=== PATIENT | female | born 1995 | race Caucasian/White ===

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

== ENCOUNTER → 2019-08-02 11:30 | Day surgery (SDC) | payer OTHER ==
[~2019-08-02 11:30] MED LIST: Acetaminophen TAB* 325 MG ONE; Acetaminophen TAB* 325 MG PO ONE; Buffered Lidocaine 1% SYRIN* 1 ML/SYRINGE INTRADERM ONE; Bupivacaine 0.5%* 50 ML MDV VIAL ONE; HYDROmorphone INJ1* 1 MG/ML SYRINGE IV PRN; HYDROmorphone INJ1* 1 MG/ML SYRINGE ONE; Lactated Ringers 1000 ML Bag* 1,000 ML IV SCH; Midazolam* 1 MG/ML 2 ML VIAL (2 MG) ONE; Naloxone* 0.4 MG/ML 1 ML VIAL IV PRN; Ondansetron INJ* 2 MG/ML VIAL ONE; PROCHLORPERAZINE INJ 5 MG/ML 2 ML VIAL IV PRN; PROCHLORPERAZINE INJ 5 MG/ML 2 ML VIAL ONE; Propofol* 10 MG/ML 20 ML BTL ONE; Rocuronium* 10 MG/ML VIAL ONE; ceFAZolin 2 GM in NS PREMIX(*) 2 GM/100 ML BAG IVPB ONE; diPHENhydraMINE IV* 50 MG/ML 1 ml VIAL (BENADRYL) IV PRN; fentaNYL* 50 MCG/ML 2 ML VIAL (100 MCG VIAL) ONE; oxyCODONE TAB* 5 MG TAB ONE; oxyCODONE TAB* 5 MG TAB PO PRN; oxyCODONE/Acetamin 5/325 MG* TAB ONE
[2019-08-02 18:54] VITALS: BP 134/81
--- NOTE | 2019-08-03 08:58 | OP ---
DATE OF OPERATION: 08/02/19 - [facility] DATE OF : 89 ATTENDING SURGEON: Yfn Horn MD [employer] SUPERINTENDENT: RABIA Wilkinson PRE-OP DIAGNOSIS: Cholecystitis. POST-OP DIAGNOSIS: Cholecystitis. OPERATIVE PROCEDURE: Robotic cholecystectomy. INDICATIONS FOR PROCEDURE: Cholecystitis. Risks included but not limited to bleeding; infection; injury to intraabdominal contents including the bowel, the bile duct, the liver all explained to the patient who seemed to understand and agreed to the procedure and all questions were answered. DESCRIPTION OF PROCEDURE: The patient was taken to the operating room, placed supine, and preoperative antibiotics were given. After the successful induction of general endotracheal anesthesia the abdomen was prepped and draped in a sterile fashion. Left upper quadrant trocar was placed under direct visualization of the camera using a bladeless Optiview trocar. Pneumoperitoneum was achieved at 12 mmHg. Camera was placed in the abdomen. The abdomen was scanned. There was no obvious injury from trocar placement. The infraumbilical and 2 right lower quadrant/right lateral quadrant robotic trocars were placed. The initial bladeless Optiview trocar was replaced with a robotic trocar. The patient was placed in the reverse Trendelenburg position tilted slightly towards the left. The fundus of the gallbladder was grasped and retracted up and over the liver. Few small adhesions were gently taken down off the gallbladder along an avascular plain. The duct was identified, isolated, clipped, and divided along with the artery separately. The gallbladder was removed from the hepatic bed using the Bovie cautery hook, it was placed into an Endobag and removed through the umbilical port site. The right upper quadrant was irrigated and aspirated dry. EBL minimal. Hemostasis was intact. Clips were in place. Pneumoperitoneum was released from the abdomen and the trocars were removed. Skin was closed with 3-0 Monocryl. Glue was applied to the skin. The patient tolerated the procedure well, was extubated, and taken to the recovery in stable condition. [id number]/[facility] #: [id number] MTDD
== END | disposition home or self-care (01) ==
LOC: OR 11:30
PROVIDERS: ATTEND Surgery
DX: K80.10 Calculus of gallbladder with chronic cholecystitis without obstruction (principal); K21.9 Gastro-esophageal reflux disease without esophagitis; E66.9 Obesity, unspecified
CPT/HCPCS: 47562; S2900; 81025; 88304; A9270-GY; J0690; J0780; J1170; J2250; J2405; J2704; J3010; J3490

== ENCOUNTER 2021-04-16 07:31 | Inpatient (IN) ==
[2021-04-16 09:43] LABS: Hematocrit 34 % (35-47); Hemoglobin 11.2 g/dL (12.0-16.0); Mean Corpuscular HGB Conc 33 g/dL (31-36); Mean Corpuscular Hemoglobin 24 pg (27-31); Mean Corpuscular Volume 74 fL (80-97); Platelet Count 272 10^3/uL (150-450); Red Blood Count 4.63 10^6 /uL (3.70-4.87); Red Cell Distribution Width 15 % (10-15); White Blood Count 10.3 10^3/uL (3.5-10.8)
[2021-04-16 10:09] LABS: Urine Benzodiazepine Screen None Detected (None Detect); Urine Cannabinoids Screen None Detected (None Detect); Urine Opiates Screen None Detected (None Detect)
[2021-04-16 10:22] LABS: Albumin 3.3 g/dL (3.2-5.2); Albumin/Globulin Ratio 1.2 (1-3); Calcium 8.9 mg/dL (8.6-10.3); Globulin 2.7 g/dL (2-4); Potassium 4.5 mmol/L (3.5-5.0); Total Bilirubin 0.5 mg/dL (0.2-1.0)
[2021-04-16] MEDS ORDERED: Buffered Lidocaine 1% SYRIN 1 ml INTRADERM ONE (12:17)
[2021-04-16] MEDS ORDERED: ceFOXitin 2 GM IVPREMIX 2 GM/50 ML BAG IVPB ONE (12:17)
[2021-04-16] MEDS ORDERED: Lactated Ringers 1000 ml BAG 1,000 ML IV ONE (12:17)
[2021-04-16] MEDS ORDERED: Sodium Citrate/Citric Acid LIQ 15 ML UDC ONE (12:17)
[2021-04-16] MEDS ORDERED: ceFOXitin 2 GM IVPREMIX 2 GM/50 ML BAG ONE (12:18)
[2021-04-16] MEDS ORDERED: Sodium Citrate/Citric Acid LIQ 15 ML UDC PO ONE (12:28)
[2021-04-16] MEDS ORDERED: Oxytocin 10 UNITS/ML 1 ML VIAL ONE (12:42)
[2021-04-16] MEDS ORDERED: Morphine PF AMP (0.5MG/ML) 5 MG/10 ML AMP ONE (12:42)
[2021-04-16] MEDS ORDERED: Bupivacaine 0.5% SDV PF 30ML VIAL ONE (12:42)
[2021-04-16] MEDS ORDERED: fentaNYL 100 mcg/2 ml 50 MCG/ML VIAL ONE (12:43)
[2021-04-16] MEDS ORDERED: Lactated Ringers 1000 ml BAG 1,000 ML IV SCH ×3 (13:00→15:00)
[2021-04-16] MEDS ORDERED: Dexamethasone IV 4 MG/ML VIAL 1 ml VIAL ONE (13:10)
[2021-04-16] MEDS ORDERED: Ondansetron 4 mg VIAL 2 MG/ML 2 ml VIAL ONE (13:10)
[2021-04-16] MEDS ORDERED: Phenylephrine 40 mcg/mL 10mL (400mcg) SYRINGE ONE (13:11)
[2021-04-16] MEDS ORDERED: EPHEDrine (Pressors) 50 MG/ML VIAL ONE (13:21)
[2021-04-16] MEDS ORDERED: DiMENhydriNATE IV 50 mg/ml 1 ml VIAL IV PUSH PRN (13:49)
[2021-04-16] MEDS ORDERED: Naloxone 0.4 mg VIAL 0.4 mg/ml 1 ml VIAL IV PRN ×2 (13:49→13:51)
[2021-04-16] MEDS ORDERED: diPHENhydraMINE IV 50 MG/ML 1 ml VIAL (BENADRYL) IV PRN (13:49)
[2021-04-16] MEDS ORDERED: HYDROcodone/ACETAMIN 5/325 mg TAB PO PRN (13:49)
[2021-04-16] MEDS ORDERED: Ondansetron 4 mg VIAL 2 MG/ML 2 ml VIAL IV PRN (13:49)
[2021-04-16] MEDS ORDERED: HYDROmorphone 1 MG/1 ML SYRINGE IV PRN (13:51)
[2021-04-16] MEDS ORDERED: Witch Hazel PAD JAR TOPICAL PRN (14:28)
[2021-04-16 14:34] LABS: Urine Appearance Clear; Urine Bilirubin Negative (Negative); Urine Blood Negative (Negative); Urine Color Yellow; Urine Glucose Negative (Negative); Urine Ketones 2+ (Negative); Urine Nitrite Negative (Negative); Urine Protein 1+(30 mg/dL) (Negative); Urine Urobilinogen Negative (Negative)
[2021-04-16 14:51] LABS: Urine Bacteria Absent (Absent); Urine Red Blood Cell Trace(0-2/hpf) (Absent); Urine Squamous Epithelial Cell Present (Absent); Urine White Blood Cell Trace(0-5/hpf) (Absent)
[2021-04-16 15:16] LABS: Urine Benzodiazepine Screen None Detected (None Detect); Urine Cannabinoids Screen None Detected (None Detect); Urine Opiates Screen None Detected (None Detect)
[2021-04-17 07:06] LABS: ABS Eosinophils 0.1 10^3/ul (0-0.6); ABS Lymphocytes 1.5 10^3/ul (1.0-4.8); ABS Monocytes 1.1 10^3/ul (0-0.8); ABS Neutrophils 7.9 10^3/ul (1.5-7.7); Eosinophil % 0.6 %; Hematocrit 26 % (35-47); Hemoglobin 8.5 g/dL (12.0-16.0); Lymphocyte % 14.2 %; Mean Corpuscular HGB Conc 33 g/dL (31-36); Mean Corpuscular Hemoglobin 25 pg (27-31); Mean Corpuscular Volume 75 fL (80-97); Mean Platelet Volume 8.5 fL (7.4-10.4); Platelet Count 207 10^3/uL (150-450); Red Blood Count 3.46 10^6 /uL (3.70-4.87); Red Cell Distribution Width 14 % (10-15); White Blood Count 10.6 10^3/uL (3.5-10.8)
[2021-04-18 11:33] VITALS: BP 148/95
== END 2021-04-18 15:00 | disposition home or self-care (01) | DRG 540 ==
LOC: MCHOBOUT 07:31 → MCHOB 08:30
PROVIDERS: ADMIT Obstetrics & Gynecology; ATTEND Obstetrics & Gynecology